=== PATIENT | female | born 1945 | race Caucasian/White ===

== ENCOUNTER 2021-08-26 11:52 | Day surgery (SDC) | payer MEDICARE, SELFPAY ==
[2021-08-20 17:43] VITALS: BMI 29.2
--- NOTE | 2021-08-25 10:56 | P.CONAN_ITS ---
Documented by User: Dolyl Marquez NP 08/25/21 10:57 HPI - Anesthesia Eval Consult details Narrative: 75yo F for Upper Endoscopy and Colonoscopy [facility] Past Medical History Medical History (Updated 08/20/21 @ 17:35 by Lynnette Coffman RN) Aortic ectasia Elevated cholesterol GERD (gastroesophageal reflux disease) Hiatal hernia History of small bowel obstruction Hypertension Osteoarthritis Vitamin D deficiency Surgical History Surgical History (Updated 08/20/21 @ 17:45 by Lynnette Coffman RN) History of bowel resection History of repair of rectocele History of total right knee replacement (TKR) Hx of tonsillectomy Social History Social History Patient Tobacco Use Status: Never used Tobacco Are you DNR?: No Advance Directives: No Advance Directives Information Provided: Yes Meds Allergies Allergy/AdvReac Type Severity Reaction Status Date / Time No Known Allergies Allergy Verified 08/21/21 08:38 Home Medications Medication Instructions Recorded Confirmed Last Taken Type acetaminophen 325 mg capsule 650 mg PO QID PRN Pain 08/20/21 08/20/21 Unknown History (Tylenol) celecoxib 200 mg capsule (Celebrex) 200 mg PO DAILY 08/20/21 08/20/21 08/19/21 History cholecalciferol (vitamin D3) 25 25 mcg PO DAILY 08/20/21 08/20/21 Unknown History mcg (1,000 unit) capsule (Vitamin D3) famotidine 20 mg tablet 20 mg PO BEDTIME 08/20/21 08/20/21 Unknown History hydrochlorothiazide 25 mg tablet 25 mg PO DAILY 08/20/21 08/20/21 Unknown History lovastatin 40 mg tablet 40 mg PO DAILY 08/20/21 08/20/21 Unknown History omeprazole 20 mg capsule,delayed 20 mg PO DAILY 08/20/21 08/20/21 08/26/21 History release Exam Exam Date and Time: August 25, 2021 1056 Height,Weight and Vital Signs: Height 5 ft 4 in Weight 77.111 kg Assessment and Plan Assessment Anesthesia Assessment: Chart Reviewed Documented by User: Jd Calix MD 08/26/21 12:21 [facility] Past Medical History Medical History (Updated 08/20/21 @ 17:35 by Lynnette Coffman, [place]) Aortic ectasia Elevated cholesterol GERD (gastroesophageal reflux disease) Hiatal hernia History of small bowel obstruction Hypertension Osteoarthritis Vitamin D deficiency Family History Family history of problems with anesthesia: No Surgical History Surgical History (Updated 08/20/21 @ 17:45 by Lynnette Coffman, [place]) History of bowel resection History of repair of rectocele History of total right knee replacement (TKR) Hx of tonsillectomy History of Problems with Anesthesia: No Social History Social History Patient Tobacco Use Status: Never used Tobacco Are you DNR?: No Advance Directives: No Advance Directives Information Provided: Yes Meds Allergies Allergy/AdvReac Type Severity Reaction Status Date / Time No Known Allergies Allergy Verified 08/21/21 08:38 Home Medications Medication Instructions Recorded Confirmed Last Taken Type acetaminophen 325 mg capsule 650 mg PO QID PRN Pain 08/20/21 08/20/21 Unknown History (Tylenol) celecoxib 200 mg capsule (Celebrex) 200 mg PO DAILY 08/20/21 08/20/21 08/19/21 History cholecalciferol (vitamin D3) 25 25 mcg PO DAILY 08/20/21 08/20/21 Unknown History mcg (1,000 unit) capsule (Vitamin D3) famotidine 20 mg tablet 20 mg PO BEDTIME 08/20/21 08/20/21 Unknown History hydrochlorothiazide 25 mg tablet 25 mg PO DAILY 08/20/21 08/20/21 Unknown History lovastatin 40 mg tablet 40 mg PO DAILY 08/20/21 08/20/21 Unknown History omeprazole 20 mg capsule,delayed 20 mg PO DAILY 08/20/21 08/20/21 08/26/21 History release Exam Airway Mallampati Class: II TM Dist: >3cm Neck ROM: Full Assessment and Plan Assessment Anesthesia Assessment: Anesthesia Plan Discussed Final Anesthetic Review Family History of Problems with Anesthesia: No History of Problems with Anesthesia: No NPO: Yes ASA Class: II Final Preanesthetic Review: No Changes in Pt Med Stat, Meds/Allgs Chart Reviewed, Consent Obtained/Reviewed and Anes Risks/Benef Reviewed Patient Risk: Low Procedure Risk: Low Anesthetic Plan Anesthetic Plan: MAC: Disposition: Standard PACU
[2021-08-26 12:04] VITALS: BP 133/65; PULSE 98; RESP 18; TEMP 36.1; O2SAT 96
[2021-08-26] MEDS: Lactated Ringers 1,000 ML 100 ML IVCONT (12:19)
--- NOTE | 2021-08-26 13:07 | MHC.SHP ---
Pre-Procedural Eval Section A Date of Service: 08/26/21 Section B Chief Complaint: screening reflux Details of Present Illness: see H&P no changes Relevant Family History (Specify if Yes): Yes Relevant Social History: None Present Medications: see Short Stay Collaborative assessment Medical History: No relevant PMH History of Previous Operations: No relevant previous surgery Allergies: Allergies Allergy/AdvReac Type Severity Reaction Status Date / Time No Known Allergies Allergy Verified 08/21/21 08:38 Review of Systems Sugical H&P ROS: Negative: Constitution, Cardiovascular, Respiratory, Neurological, Psychiatric, Hem-Onc, Allergic/Immunologic, Gastrointestinal, Genitourinary, Musculoskeletal, Integumentary, Endocrine and Eyes/Ears/Nose/Throat Exam Surgical H&P Exam: Normal: HEENT, Normal: Heart, Normal: Lungs, Normal: Extremities, Normal: Abdomen, Normal: Skin and Normal: Neurological Plan Diagnosis/Plan: Unchanged I have reviewed the history and physical and performed a pertinent physical examination on my patient. No changes have occurred unless specified.
[2021-08-26 14:24] VITALS: BP 98/45; PULSE 83; RESP 16; TEMP 36.1; O2SAT 96
--- NOTE | 2021-08-26 14:26 | PM.OP ---
Brief Operative Note Date of Service: 08/26/21 Pre-op diagnosis: gers screening Post-op diagnosis: same (colon polyp) Procedure: egd colon Surgeon: Paulo Lopez Anesthesia: MAC Was an [employer] used for this Procedure?: No Estimated blood loss (mL): 5 Pathology: other (see req) Condition: stable Disposition: PACU
[2021-08-26 14:39] VITALS: BP 116/70; PULSE 86; RESP 18; TEMP 36.2; O2SAT 99
--- NOTE | 2021-08-28 11:44 | OP_ITS ---
SURGEON: Paulo Lopez MD INDICATIONS: 1. Colon cancer screening. 2. Family history of colon cancer. 3. Gastroesophageal reflux disease. PREOPERATIVE DIAGNOSIS: POSTOPERATIVE DIAGNOSIS: PROCEDURE PERFORMED: 1. Upper endoscopy with biopsy. 2. Colonoscopy to the terminal ileum with snare polypectomy. ESTIMATED BLOOD LOSS: COMPLICATIONS: ANESTHESIA: ASSISTANTS: SPECIMENS: MEDICATIONS: Monitored anesthesia care. DESCRIPTION OF PROCEDURE: History and physical were performed. The risks and benefits of the procedure were explained to the patient. Informed consent was obtained. The patient was placed in left lateral decubitus position. The Olympus video gastroscope was introduced into the esophagus, stomach, and duodenum. Examination was performed. The scope was removed. She tolerated the procedure well and was repositioned for colonoscopy. Digital rectal exam was performed and was found to be normal. The Olympus pediatric video colonoscope was introduced into the rectum and advanced to the cecum without difficulty. The cecum was identified by transillumination, palpation, and identification of ileocecal valve. Examination was performed. The scope was removed. She tolerated both procedures well and was returned to recovery area in stable condition. FINDINGS: UPPER ENDOSCOPY: Esophagus: The esophagus was normal. Venous lakes were present. There was no esophagitis. The EG junction was slightly irregular. Biopsies were obtained from the EG junction. Stomach: The stomach was normal. Antral biopsies were obtained. There appeared to be a moderate paraesophageal hernia. Duodenum: The bulb and second portion were normal. COLONOSCOPY: The terminal ileum was normal. The visualized colonic mucosa was normal. The quality of the prep was good. A single polyp was identified at 30 cm from the anal verge measuring 6 mm and was removed with a cold snare. There was moderate diverticulosis of the sigmoid and scattered diverticulosis throughout the colon. Retroflexed examination showed some small internal hemorrhoids. IMPRESSION: 1. Gastroesophageal reflux disease. 2. Paraesophageal hernia 3. Colon polyp. RECOMMENDATION: 1. Follow up the biopsy results. 2. Further screening colonoscopies are optional, but could be considered in 5 years because of family history. MD RONALDO Macias/ELADIO / [id number] PERI
== END 2021-08-26 15:16 | disposition home or self-care (01) ==
PROVIDERS: PCP Internal Medicine Geriatric Medicine; Visit Provider Internal Medicine Gastroenterology
PROC: (CPT 45385; principal; 2021-08-26 13:00)
DX: Z12.11 Encounter for screening for malignant neoplasm of colon (principal); Z80.0 Family history of malignant neoplasm of digestive organs; D12.5 Benign neoplasm of sigmoid colon; K21.9 Gastro-esophageal reflux disease without esophagitis; K44.9 Diaphragmatic hernia without obstruction or gangrene; E78.00 Pure hypercholesterolemia, unspecified; I10 Essential (primary) hypertension; I77.819 Aortic ectasia, unspecified site; E55.9 Vitamin D deficiency, unspecified; Z79.899 Other long term (current) drug therapy; Z87.19 Personal history of other diseases of the digestive system; Z90.49 Acquired absence of other specified parts of digestive tract; Z96.651 Presence of right artificial knee joint
CPT/HCPCS: 45385; 43239; 88305; 88342